=== PATIENT | male | born 1975 | race Two or more races ===

== ENCOUNTER 2016-11-21 05:29 | Day surgery (SDC) | payer OTHER ==
[~2016-11-21 05:29] MED LIST: DAILY MULTIPLE1 EAC2 PO; DIFLUCAN100 M1 PO; KEFLEX500 M4 PO; NEURONTIN100 M1 PO; NEURONTIN300 M1 PO; NORCO 7.5-3251 EACH PO; TRAMADOL HCL50 M2 PO; TYLENOL325 M2 PO
[2016-11-25] MEDS ORDERED: CYMBALTA60 M1 PO (10:50)
[2016-11-25] MEDS ORDERED: TYLENOL EXTRA500 M1 PO (10:51)
== END 2016-11-21 11:50 ==
LOC: SRG 05:29 → SHSC 05:32 → ORW 07:59 → PACU 09:32 → SHSC 10:00
PROC: 0HXLXZZ Transfer Left Lower Leg Skin, External Approach (ICD-10-PCS; principal; 2016-11-21)
DX: S87.82XA Crushing injury of left lower leg, initial encounter (principal); E66.9 Obesity, unspecified; Z79.899 Other long term (current) drug therapy; X58.XXXA Exposure to other specified factors, initial encounter; Z68.28 Body mass index [BMI] 28.0-28.9, adult; Z98.890 Other specified postprocedural states
CPT/HCPCS: J0690; L4396